=== PATIENT | male | born 1945 | race African-American/Black ===

== ENCOUNTER → 2017-03-24 | Outpatient (CLI) | payer OTHER, MEDICARE | END | disposition home or self-care (01) | LOC: RAD 11:28 | DX: M19.011 Primary osteoarthritis, right shoulder (principal); M75.02 Adhesive capsulitis of left shoulder ==

== ENCOUNTER 2017-04-24 08:52 | Inpatient (IN) | payer OTHER, MEDICARE ==
[~2017-04-24] VITALS: Ht 167.6 cm; Wt 64.6 kg
[2017-04-24] VITALS (7 sets, daily range): BP systolic 108–131; BP diastolic 58–75
--- NOTE | ~2017-04-24 | CON ---
[place], [place] REPORT OF CONSULTATION NAME: ANAHI CARRANZA [facility] #: [id number] UNIT #: [id number] ROOM: 532 DOCTOR: SILVIO MataRAAD BIRTHDATE: [birth year] DOS: 04/25/2017 HISTORY OF PRESENT ILLNESS: This is a 71-year-old male who was admitted to the Emergency Room Department for a fall. Charts indicate that he also may have passed out. He had been complaining of feeling lightheaded and it is unclear if he hit his head or not, but Wound Care has been consulted for evaluation of feet. PAST MEDICAL HISTORY: Significant for the following, frozen shoulder, hernia repair. Current medical problems; however, include cellulitis, elevated CPK, fall, generalized weakness, hyperbilirubinemia, hypercholesterolemia, hyperglycemia, hypocalcemia, hypokalemia, sinus bradycardia, spinal stenosis in the cervical region, syncope and collapse and urinary retention. FAMILY HISTORY: Significant for diabetes in the father, kidney disease in his mother. ALLERGIES: No known drug allergies. CURRENT MEDICATIONS: Zocor 20 mg p.o. at bedtime, oxybutynin 5 mg p.o. b.i.d., hydrochlorothiazide 25 p.o. daily, Lovenox 40 subcutaneous daily, aspirin 81 p.o. daily, Protonix 40 p.o. daily, vancomycin 1000 mg IV twice a day, Zosyn 3.375 g IV q. 6 hours, Restoril, Zofran, morphine, milk of mag, Dulcolax, Branscomb and Tylenol p.r.n. REVIEW OF SYSTEMS: He denies any chest pains or shortness of breath. He denies any nausea or vomiting. When I asked if he has any problems with his bowels, he denies any problems with that at the present time. He said he is taking oxybutynin for incomplete voiding. He denies any numbness or tingling in the upper extremities or lower extremities, but states he is weak. He stated he is really unable to move his arms or legs and unable to stand up. He has deformed toenails and states he has not really been taking care of himself and he seems to be aware of that. PHYSICAL EXAMINATION: VITAL SIGNS: Temperature is 97.9, pulse of 59, respirations 20, blood pressure is 111/51. GENERAL: This is an elderly male, lying in bed, in no acute distress. He is pleasant and cooperative. He is alert, awake and appropriate. HEENT: Oropharynx is clear. Extraocular movements are intact. NECK: Supple. I did not appreciate any JVD. LUNGS: Clear to auscultation. CARDIOVASCULAR: S1, S2, regular rate and rhythm. ABDOMEN: Soft. It does seem to be mildly distended. Positive bowel sounds and nontender. EXTREMITIES: He has edema of both of his legs at this time. One leg is crossed over on the other leg and is creating an indentation. It is pitting edema. He has no calf tenderness. He has very thickened and deformed toenails. Pedal swelling is noted. The toes are markedly edematous. There are thick patches of dry scales on the dorsal surface of all the toes. There is some maceration [place], [place] REPORT OF CONSULTATION NAME: ANAHI CARRANZA UNIT #: [id number] ROOM: [facility] DOCTOR: RAAD ANGUIANO M.D. BIRTHDATE: [birth year] noted in between the toes. I did not actually see any open ulcers at this time. NEUROLOGICAL: He is really unable to move voluntarily his arms or legs. He has reflex spasticity noted in the lower extremities when examining him. LABORATORY DATA: Shows sodium of 140, potassium of 3.5, BUN of 7, creatinine is 0.74. Hemoglobin A1c is 5.8. Troponin is negative x 2. Albumin is 2.9. INR is 1.1. White count is 7.1, hemoglobin is 12.8 and platelets are 171. Urine culture is growing greater than 100,000 Gram-negative bacilli. ASSESSMENT AND PLAN: Multiple medical problems. As far as the feet go, I would recommend Podiatry consultation. At this point, I would try to wash his feet with chlorhexidine and use antifungal powder for the areas in between the toes, consider antifungal oral medication as well and consider using Lac-Hydrin for the hyperkeratotic areas located on the dorsum of the feet. He did have arterial Dopplers done which were no significant peripheral arterial disease and venous Dopplers were negative for DVT in the lower extremities. Multiple other medical problems are being managed by his medical team. RAAD ANGUIANO MD CM:CONSTR:REPORT OF CONSULTATION [id number] 04/26/17 1419 interface
[2017-04-24 09:27] LABS: BASO % 0.5 % (0.0-1.0); EOS # 0.1 10*3/uL (0.0-0.4); HEMATOCRIT 37.9 % (42.0-52.0); HEMOGLOBIN 13.1 g/dl (14.0-18.0); LYMPH # 0.8 10*3/uL (1.3-4.4); LYMPH % 13.1 % (27.0-41.0); MEAN CORPUSCULAR HGB 32.5 pg (27.0-31.0); MEAN CORPUSCULAR HGB CONC 34.6 g/dl (33.0-37.0); MEAN PLATELET VOLUME 9.6 fl (9.6-12.3); MONO # 0.3 10*3/uL (0.1-1.0); MONO % 4.9 % (3.0-9.0); NEUT # 4.9 10*3/uL (2.3-7.9); NEUT % 80.3 % (47.0-73.0); PLATELET COUNT AUTOMATED 174 10*3/uL (130-400); RED BLOOD COUNT 4.03 10*6/uL (4.50-5.90); RED CELL DISTRI WIDTH 13.2 % (0-14.5); WHITE BLOOD COUNT 6.1 10*3/uL (4.8-10.8)
[2017-04-24 09:36] LABS: INTERNATIONAL NORM RATIO 1.1 (2.0-3.5); PROTHROMBIN TIME 12.1 SECONDS (9.0-12.4)
[2017-04-24 09:49] LABS: ALBUMIN 3.5 gm/dl (3.1-4.5); ALKALINE PHOSPHATASE 75 U/L (45-117); BILIRUBIN, TOTAL 1.3 mg/dl (0.2-1.0); BUN 9 mg/dl (7-24); CARBON DIOXIDE 28 mmol/L (21-32); CHLORIDE 104 mmol/L (98-107); CPK 332 U/L (39-308); EST GLOM FILT AFRICAN AMERICAN > 60 ml/min; GLUCOSE 118 mg/dL (65-99); MAGNESIUM 2.1 mg/dL (1.5-2.1); POTASSIUM 3.3 mmol/L (3.5-5.1); SGOT/AST 22 IU/L (3-35); SGPT/ALT 21 U/L (12-78); SODIUM 138 mmol/L (136-145); TOTAL PROTEIN 6.2 gm/dL (6.4-8.2)
[2017-04-24 09:51] LABS: TROPONIN I < 0.015 ng/ml (<0.045)
[2017-04-24 10:10] LABS: BILIRUBIN NEGATIVE (NEGATIVE); BLOOD NEGATIVE (NEGATIVE); CLARITY CLOUDY (CLEAR); COLOR YELLOW (YELLOW); GLUCOSE NEGATIVE (NEGATIVE); KETONE 1+ (NEGATIVE); LEUKO ESTERASE TRACE (NEGATIVE); NITRITE POSITIVE (NEGATIVE); PROTEIN NEGATIVE (NEGATIVE)
[2017-04-24 10:17] LABS: BACTERIA 3+; RBC 0-2 rbc/hpf (0-2)
[2017-04-24 10:18] LABS: URINE REFLEX COMMENT YES (NO)
[2017-04-24] MEDS ORDERED: OXYBUTYNIN5 MG PO (13:39)
[2017-04-24] MEDS ORDERED: SIMVASTATIN20 MG PO (13:39)
[2017-04-24] MEDS ORDERED: HYDR25T PO (13:40)
[2017-04-24] MEDS ORDERED: ASPIR LOW81 MG PO (13:40)
[2017-04-25 06:09] LABS: BASO % 0.4 % (0.0-1.0); EOS # 0.1 10*3/uL (0.0-0.4); HEMATOCRIT 37.4 % (42.0-52.0); HEMOGLOBIN 12.8 g/dl (14.0-18.0); LYMPH % 13.6 % (27.0-41.0); MEAN CELL VOLUME 94.2 fl (80.0-94.0); MEAN CORPUSCULAR HGB 32.2 pg (27.0-31.0); MEAN CORPUSCULAR HGB CONC 34.2 g/dl (33.0-37.0); MONO # 0.4 10*3/uL (0.1-1.0); MONO % 5.9 % (3.0-9.0); NEUT # 5.5 10*3/uL (2.3-7.9); NEUT % 77.7 % (47.0-73.0); PLATELET COUNT AUTOMATED 171 10*3/uL (130-400); RED BLOOD COUNT 3.97 10*6/uL (4.50-5.90); RED CELL DISTRI WIDTH 13.2 % (0-14.5); WHITE BLOOD COUNT 7.1 10*3/uL (4.8-10.8)
[2017-04-25 06:27] LABS: HEMOGLOBIN A1c 5.8 % (4.8-5.6)
[2017-04-25 06:36] LABS: ALBUMIN 2.9 gm/dl (3.1-4.5); BILIRUBIN, TOTAL 1.5 mg/dl (0.2-1.0); BUN 7 mg/dl (7-24); CARBON DIOXIDE 29 mmol/L (21-32); CHLORIDE 106 mmol/L (98-107); CHOLESTEROL 116 mg/dL (<200); EST GLOM FILT AFRICAN AMERICAN > 60 ml/min; GLUCOSE 85 mg/dL (65-99); MAGNESIUM 2.1 mg/dL (1.5-2.1); PHOSPHOROUS 3.7 mg/dL (2.5-4.9); POTASSIUM 3.5 mmol/L (3.5-5.1); SGOT/AST 16 IU/L (3-35); SGPT/ALT 16 U/L (12-78); SODIUM 140 mmol/L (136-145); TOTAL PROTEIN 5.4 gm/dL (6.4-8.2); TRIGLYCERIDES 63 mg/dl (<150); VLDL CHOLESTEROL 13 mg/dL (6-40)
[2017-04-25 06:38] LABS: INTERNATIONAL NORM RATIO 1.1 (2.0-3.5); PROTHROMBIN TIME 11.9 SECONDS (9.0-12.4)
[2017-04-25 06:43] LABS: ALKALINE PHOSPHATASE 69 U/L (45-117); HDL CHOLESTEROL 30 mg/dl (40-60); LDL CHOLESTEROL 73 mg/dL (9-159)
[2017-04-25 08:26] VITALS: BP 110/50
[2017-04-25 12:45] VITALS: BP 111/51
[2017-04-25 16:00] VITALS: BP 119/58
[2017-04-25 16:51] LABS: FOLIC ACID 16.48 ng/mL (>5.38); VITAMIN D, 25-HYDROXY 32.4 ng/mL (30-100)
== END 2017-04-25 19:28 | disposition short-term general hospital (02) | DRG 603 ==
LOC: ED 08:52 → EDHOLD 10:48 → 5E 10:48
PROVIDERS: Emergency Medicine; Internal Medicine
DX: L03.116 Cellulitis of left lower limb (principal); E44.0 Moderate protein-calorie malnutrition; N30.00 Acute cystitis without hematuria; R00.1 Bradycardia, unspecified; E83.51 Hypocalcemia; M48.02 Spinal stenosis, cervical region; R55 Syncope and collapse; R94.4 Abnormal results of kidney function studies; E80.6 Other disorders of bilirubin metabolism; R33.9 Retention of urine, unspecified; R73.03 Prediabetes; E87.6 Hypokalemia; E78.00 Pure hypercholesterolemia, unspecified; W18.30XA Fall on same level, unspecified, initial encounter; Y93.89 Activity, other specified; Y92.098 Other place in other non-institutional residence as the place of occurrence of the external cause; Y99.8 Other external cause status; Z79.82 Long term (current) use of aspirin; Z79.899 Other long term (current) drug therapy; Z83.3 Family history of diabetes mellitus; Z84.1 Family history of disorders of kidney and ureter; Z91.81 History of falling

== ENCOUNTER 2017-10-04 22:52 | Inpatient (IN) | payer OTHER, MEDICARE ==
[~2017-10-04] VITALS: Ht 167.6 cm; Wt 64.0 kg
[~2017-10-04 22:52] MED LIST: ASPIR LOW81 MG PO; HYDR25T PO; OXYBUTYNIN5 MG PO; SIMVASTATIN20 MG PO
[2017-10-04 22:57] VITALS: BP 119/70
[2017-10-05] VITALS (7 sets, daily range): BP systolic 87–127; BP diastolic 45–74
[2017-10-05 00:22] LABS: BASO % 0.3 % (0.0-1.0); EOS # 0.1 10*3/uL (0.0-0.4); EOS % 0.8 % (1.0-4.0); HEMATOCRIT 39.3 % (42.0-52.0); HEMOGLOBIN 13.1 g/dl (14.0-18.0); LYMPH # 0.9 10*3/uL (1.3-4.4); LYMPH % 11.6 % (27.0-41.0); MEAN CELL VOLUME 91.8 fl (80.0-94.0); MEAN CORPUSCULAR HGB 30.6 pg (27.0-31.0); MEAN CORPUSCULAR HGB CONC 33.3 g/dl (33.0-37.0); MEAN PLATELET VOLUME 10.1 fl (9.6-12.3); MONO # 0.3 10*3/uL (0.1-1.0); MONO % 4.3 % (3.0-9.0); NEUT # 6.2 10*3/uL (2.3-7.9); NEUT % 82.7 % (47.0-73.0); PLATELET COUNT AUTOMATED 158 10*3/uL (130-400); RED BLOOD COUNT 4.28 10*6/uL (4.50-5.90); RED CELL DISTRI WIDTH 15.4 % (0-14.5); WHITE BLOOD COUNT 7.5 10*3/uL (4.8-10.8)
[2017-10-05 00:30] LABS: ACT PARTIAL THROMBO TIME 26.3 SECONDS (20.8-31.5); INTERNATIONAL NORM RATIO 1.1 (2.0-3.5)
[2017-10-05 00:47] LABS: ALBUMIN 3.7 gm/dl (3.1-4.5); ALKALINE PHOSPHATASE 102 U/L (45-117); BUN 10 mg/dl (7-24); CHLORIDE 101 mmol/L (98-107); CREATININE 0.78 mg/dL (0.70-1.30); POTASSIUM 3.8 mmol/L (3.5-5.1); SGOT/AST 20 IU/L (3-35); SGPT/ALT 23 U/L (12-78); SODIUM 141 mmol/L (136-145); TOTAL PROTEIN 6.7 gm/dL (6.4-8.2)
[2017-10-05 00:51] LABS: TROPONIN I < 0.015 ng/ml (<0.045)
[2017-10-05 00:55] LABS: BILIRUBIN NEGATIVE (NEGATIVE); BLOOD NEGATIVE (NEGATIVE); CLARITY SL CLOUDY (CLEAR); COLOR YELLOW (YELLOW); GLUCOSE NEGATIVE (NEGATIVE); KETONE NEGATIVE (NEGATIVE); LEUKO ESTERASE 2+ (NEGATIVE); NITRITE POSITIVE (NEGATIVE); SPECIFIC GRAVITY <= 1.005 (1.005-1.030); UROBILINOGEN 0.2 E.U./dl (0.2-1.0)
[2017-10-05 01:05] LABS: WBC 21-30 wbc/hpf (0-5)
[2017-10-05 01:06] LABS: BACTERIA 4+
[2017-10-05 01:09] LABS: URINE AMPHETAMINES < 1000 (1000ng/ml); URINE BARBITURATES < 200 (200ng/ml); URINE BENZODIAZEPINES < 200 (200ng/ml); URINE CANNABINOIDS (THC) < 50 (50ng/ml); URINE COCAINE < 300 (300ng/ml); URINE METHADONE < 300 (300ng/ml); URINE OPIATES < 300 (300ng/ml)
[2017-10-05 01:13] LABS: URINE PHENCYCLIDINE < 25 (25ng/ml)
[2017-10-05 06:20] LABS: BASO % 0.3 % (0.0-1.0); EOS % 0.7 % (1.0-4.0); HEMATOCRIT 38.4 % (42.0-52.0); HEMOGLOBIN 12.9 g/dl (14.0-18.0); LYMPH # 0.8 10*3/uL (1.3-4.4); LYMPH % 13.2 % (27.0-41.0); MEAN CELL VOLUME 92.3 fl (80.0-94.0); MEAN CORPUSCULAR HGB CONC 33.6 g/dl (33.0-37.0); MEAN PLATELET VOLUME 9.8 fl (9.6-12.3); MONO # 0.3 10*3/uL (0.1-1.0); MONO % 4.9 % (3.0-9.0); NEUT % 80.7 % (47.0-73.0); PLATELET COUNT AUTOMATED 159 10*3/uL (130-400); RED BLOOD COUNT 4.16 10*6/uL (4.50-5.90); RED CELL DISTRI WIDTH 15.3 % (0-14.5); WHITE BLOOD COUNT 6.1 10*3/uL (4.8-10.8)
[2017-10-05 06:22] LABS: INTERNATIONAL NORM RATIO 1.1 (2.0-3.5)
[2017-10-05 06:44] LABS: ALBUMIN 3.3 gm/dl (3.1-4.5); ALKALINE PHOSPHATASE 97 U/L (45-117); BUN 8 mg/dl (7-24); CHLORIDE 108 mmol/L (98-107); CHOLESTEROL 87 mg/dL (<200); CREATININE 0.76 mg/dL (0.70-1.30); HDL CHOLESTEROL 39 mg/dl (40-60); LDL CHOLESTEROL 41 mg/dL (9-159); PHOSPHOROUS 3.2 mg/dL (2.5-4.9); POTASSIUM 3.5 mmol/L (3.5-5.1); SGOT/AST 16 IU/L (3-35); SGPT/ALT 21 U/L (12-78); SODIUM 145 mmol/L (136-145); TOTAL PROTEIN 6.3 gm/dL (6.4-8.2); TRIGLYCERIDES 34 mg/dl (<150); VLDL CHOLESTEROL 7 mg/dL (6-40)
[2017-10-05 08:36] LABS: VITAMIN D, 25-HYDROXY 32.1 ng/mL (30-100)
[2017-10-05] MEDS ORDERED: FLOMAX0.4 MG PO (13:28)
[2017-10-05] MEDS ORDERED: VESICARE10 MG PO (13:42)
[2017-10-06] VITALS: BP 98/50
[2017-10-06 08:00] VITALS: BP 102/60
[2017-10-06 11:56] VITALS: BP 103/58
[2017-10-06] MEDS ORDERED: CIPRO500 MG PO (15:48)
[2017-10-06 16:00] VITALS: BP 101/59
== END 2017-10-06 18:29 | disposition home health service (06) | DRG 312 ==
LOC: ED 22:52 → EDHOLD 10-05 01:44 → 5E 10-05 01:44
PROVIDERS: Emergency Medicine Emergency Medical Services; Hospitalist
DX: R55 Syncope and collapse (principal); D64.9 Anemia, unspecified; N39.0 Urinary tract infection, site not specified; E44.1 Mild protein-calorie malnutrition; S00.03XA Contusion of scalp, initial encounter; E78.00 Pure hypercholesterolemia, unspecified; I10 Essential (primary) hypertension; Z53.29 Procedure and treatment not carried out because of patient's decision for other reasons; W18.39XA Other fall on same level, initial encounter; R73.03 Prediabetes; N40.0 Benign prostatic hyperplasia without lower urinary tract symptoms; R73.9 Hyperglycemia, unspecified; Z91.81 History of falling; Y93.89 Activity, other specified; Y92.098 Other place in other non-institutional residence as the place of occurrence of the external cause; Y99.8 Other external cause status; Z79.899 Other long term (current) drug therapy; Z87.440 Personal history of urinary (tract) infections; Z83.3 Family history of diabetes mellitus; Z84.1 Family history of disorders of kidney and ureter; Z79.82 Long term (current) use of aspirin; Z68.22 Body mass index [BMI] 22.0-22.9, adult

== ENCOUNTER → 2018-07-31 | Outpatient (CLI) | payer MEDICARE, OTHER ==
[~2018-07-31] MED LIST changes: +CIPRO500 MG PO; +FLOMAX0.4 MG PO; +VESICARE10 MG PO
== END ==
LOC: RAD 11:41
DX: M50.30 Other cervical disc degeneration, unspecified cervical region (principal); Z98.1 Arthrodesis status

== ENCOUNTER 2019-12-08 04:03 | Inpatient (IN) | payer MEDICARE, OTHER ==
[~2019-12-08] VITALS: Ht 167.6 cm; Wt 60.0 kg
[2019-12-08 04:14] VITALS: BP 108/59
[2019-12-08 04:44] LABS: BASO % 0.4 % (0.0-1.0); EOS # 0.1 10*3/uL (0.0-0.4); EOS % 0.7 % (1.0-4.0); HEMATOCRIT 36.8 % (42.0-52.0); HEMOGLOBIN 12.2 g/dl (14.0-18.0); LYMPH # 0.9 10*3/uL (1.3-4.4); LYMPH % 12.6 % (27.0-41.0); MEAN CELL VOLUME 98.1 fl (80.0-94.0); MEAN CORPUSCULAR HGB 32.5 pg (27.0-31.0); MEAN CORPUSCULAR HGB CONC 33.2 g/dl (33.0-37.0); MEAN PLATELET VOLUME 9.7 fl (9.6-12.3); MONO # 0.3 10*3/uL (0.1-1.0); MONO % 4.9 % (3.0-9.0); NEUT # 5.6 10*3/uL (2.3-7.9); NEUT % 81.1 % (47.0-73.0); PLATELET COUNT AUTOMATED 157 10*3/uL (130-400); RED BLOOD COUNT 3.75 10*6/uL (4.50-5.90); RED CELL DISTRI WIDTH 13.3 % (0-14.5); WHITE BLOOD COUNT 6.9 10*3/uL (4.8-10.8)
[2019-12-08 04:59] LABS: ACT PARTIAL THROMBO TIME 26.3 SECONDS (20.0-32.1); INTERNATIONAL NORM RATIO 1.1 (2.0-3.5)
[2019-12-08 05:01] LABS: ALBUMIN 3.3 gm/dl (3.1-4.5); ALKALINE PHOSPHATASE 80 U/L (45-117); BUN 7 mg/dl (7-24); CHLORIDE 107 mmol/L (98-107); CREATININE 0.63 mg/dL (0.70-1.30); LIPASE 56 U/L (73-393); POTASSIUM 3.3 mmol/L (3.5-5.1); SGOT/AST 21 IU/L (3-35); SGPT/ALT 25 U/L (12-78); SODIUM 138 mmol/L (136-145); TOTAL PROTEIN 6.1 gm/dL (6.4-8.2)
[2019-12-08 05:02] LABS: TROPONIN I < 0.015 ng/ml (<0.045)
[2019-12-08 05:20] LABS: BILIRUBIN NEGATIVE (NEGATIVE); BLOOD TRACE-INTACT (NEGATIVE); CLARITY SL CLOUDY (CLEAR); COLOR YELLOW (YELLOW); GLUCOSE NEGATIVE (NEGATIVE); KETONE NEGATIVE (NEGATIVE); NITRITE POSITIVE (NEGATIVE); PH 8.5 (5.0-9.0); SPECIFIC GRAVITY 1.005 (1.005-1.030); UROBILINOGEN 0.2 E.U./dl (0.2-1.0)
[2019-12-08 05:21] LABS: LEUKO ESTERASE TRACE (NEGATIVE)
[2019-12-08 05:24] LABS: BACTERIA 4+
[2019-12-08 08:00] VITALS: BP 125/63
[2019-12-08 08:30] VITALS: BP 124/63
[2019-12-08 09:40] VITALS: BP 138/60
[2019-12-08 16:00] VITALS: BP 126/62
[2019-12-08 20:00] VITALS: BP 113/58
[2019-12-09] VITALS: BP 113/59
[2019-12-09 06:59] LABS: BASO % 0.5 % (0.0-1.0); EOS # 0.1 10*3/uL (0.0-0.4); HEMATOCRIT 39.5 % (42.0-52.0); HEMOGLOBIN 12.9 g/dl (14.0-18.0); LYMPH # 0.9 10*3/uL (1.3-4.4); LYMPH % 15.3 % (27.0-41.0); MEAN CELL VOLUME 99.5 fl (80.0-94.0); MEAN CORPUSCULAR HGB 32.5 pg (27.0-31.0); MEAN CORPUSCULAR HGB CONC 32.7 g/dl (33.0-37.0); MEAN PLATELET VOLUME 10.7 fl (9.6-12.3); MONO # 0.3 10*3/uL (0.1-1.0); MONO % 5.1 % (3.0-9.0); NEUT # 4.5 10*3/uL (2.3-7.9); NEUT % 76.8 % (47.0-73.0); PLATELET COUNT AUTOMATED 168 10*3/uL (130-400); RED BLOOD COUNT 3.97 10*6/uL (4.50-5.90); RED CELL DISTRI WIDTH 13.6 % (0-14.5); WHITE BLOOD COUNT 5.9 10*3/uL (4.8-10.8)
[2019-12-09 07:10] LABS: BUN 5 mg/dl (7-24); CHLORIDE 111 mmol/L (98-107); CHOLESTEROL 99 mg/dL (<200); CREATININE 0.57 mg/dL (0.70-1.30); HDL CHOLESTEROL 27 mg/dl (40-60); LDL CHOLESTEROL 58 mg/dL (9-159); PHOSPHOROUS 3.5 mg/dL (2.5-4.9); POTASSIUM 3.7 mmol/L (3.5-5.1); SODIUM 143 mmol/L (136-145); TRIGLYCERIDES 71 mg/dl (<150); VLDL CHOLESTEROL 14 mg/dL (6-40)
[2019-12-09 08:00] VITALS: BP 114/58
[2019-12-09] MEDS ORDERED: TYLENOL325 M2 PO (10:30)
[2019-12-09] MEDS ORDERED: AMMONIUM LACTA227 GM T (10:33)
[2019-12-09] MEDS ORDERED: BACLOFEN5 MG PO (10:35)
[2019-12-09] MEDS ORDERED: DULCOLAX STOOL100 M1 PO (10:36)
[2019-12-09] MEDS ORDERED: HYDR25T PO (10:38)
[2019-12-09] MEDS ORDERED: MELATONIN3 M3 PO (10:43)
[2019-12-09] MEDS ORDERED: MULTIVITAMINS1 EAC5 PO (10:45)
[2019-12-09] MEDS ORDERED: BETADINE T (10:49)
[2019-12-09] MEDS ORDERED: UREA85 G1 T (10:53)
[2019-12-09] MEDS ORDERED: METAMUCIL FIBE3.4 GM PO (10:53)
[2019-12-09] MEDS ORDERED: LIDOCAINE PAIN1 EACH T (11:00)
[2019-12-09 12:00] VITALS: BP 109/73
[2019-12-09] MEDS ORDERED: MIRALAX POWDER17 G1 PO (15:08)
[2019-12-10 13:48] LABS: VITAMIN D, 25-HYDROXY 32.6 ng/mL (30-100)
== END 2019-12-09 16:45 | disposition home health service (06) | DRG 392 ==
LOC: ED 04:03 → EDHOLD 07:36 → 4E 07:36
PROVIDERS: Emergency Medicine Emergency Medical Services; Family Medicine; ADMIT Family Medicine
DX: K59.00 Constipation, unspecified (principal); T83.518A Infection and inflammatory reaction due to other urinary catheter, initial encounter; N39.0 Urinary tract infection, site not specified; E44.1 Mild protein-calorie malnutrition; I50.32 Chronic diastolic (congestive) heart failure; R33.9 Retention of urine, unspecified; R73.9 Hyperglycemia, unspecified; E87.6 Hypokalemia; D53.9 Nutritional anemia, unspecified; R73.03 Prediabetes; R93.2 Abnormal findings on diagnostic imaging of liver and biliary tract; L97.509 Non-pressure chronic ulcer of other part of unspecified foot with unspecified severity; G62.9 Polyneuropathy, unspecified; Z87.39 Personal history of other diseases of the musculoskeletal system and connective tissue; Z87.19 Personal history of other diseases of the digestive system; Z79.82 Long term (current) use of aspirin; Z79.899 Other long term (current) drug therapy; Z83.3 Family history of diabetes mellitus; Z84.1 Family history of disorders of kidney and ureter; Z68.21 Body mass index [BMI] 21.0-21.9, adult

== ENCOUNTER 2019-12-12 05:36 | Inpatient (IN) | payer MEDICARE, OTHER ==
[~2019-12-12] VITALS: Ht 167.6 cm; Wt 59.6 kg
[~2019-12-12 05:36] MED LIST changes: +AMMONIUM LACTA227 GM T; +BACLOFEN5 MG PO; +BETADINE T; +DULCOLAX STOOL100 M1 PO; +LIDOCAINE PAIN1 EACH T; +MELATONIN3 M3 PO; +METAMUCIL FIBE3.4 GM PO; +MIRALAX POWDER17 G1 PO; +MULTIVITAMINS1 EAC5 PO; +TYLENOL325 M2 PO; +UREA85 G1 T
[2019-12-12 05:57] VITALS: BP 86/51
[2019-12-12 06:15] LABS: BASO % 0.4 % (0.0-1.0); EOS # 0.2 10*3/uL (0.0-0.4); EOS % 2.2 % (1.0-4.0); HEMATOCRIT 32.4 % (42.0-52.0); HEMOGLOBIN 10.8 g/dl (14.0-18.0); LYMPH # 0.9 10*3/uL (1.3-4.4); MEAN CELL VOLUME 97.6 fl (80.0-94.0); MEAN CORPUSCULAR HGB 32.5 pg (27.0-31.0); MEAN CORPUSCULAR HGB CONC 33.3 g/dl (33.0-37.0); MEAN PLATELET VOLUME 9.6 fl (9.6-12.3); MONO # 0.7 10*3/uL (0.1-1.0); MONO % 8.3 % (3.0-9.0); NEUT # 6.5 10*3/uL (2.3-7.9); NEUT % 77.7 % (47.0-73.0); PLATELET COUNT AUTOMATED 153 10*3/uL (130-400); RED BLOOD COUNT 3.32 10*6/uL (4.50-5.90); RED CELL DISTRI WIDTH 13.4 % (0-14.5); WHITE BLOOD COUNT 8.3 10*3/uL (4.8-10.8)
[2019-12-12 06:26] VITALS: BP 80/53
[2019-12-12 06:28] LABS: ALBUMIN 3.3 gm/dl (3.1-4.5); ALKALINE PHOSPHATASE 77 U/L (45-117); BUN 22 mg/dl (7-24); CHLORIDE 105 mmol/L (98-107); CREATININE 0.68 mg/dL (0.70-1.30); LIPASE 60 U/L (73-393); POTASSIUM 3.8 mmol/L (3.5-5.1); SGOT/AST 18 IU/L (3-35); SGPT/ALT 24 U/L (12-78); SODIUM 139 mmol/L (136-145)
[2019-12-12 08:00] VITALS: BP 103/58
[2019-12-12] MEDS ORDERED: EMERGEN-C 500500 MG PO (08:34)
[2019-12-12] MEDS ORDERED: OMEGA 3 1,0001 EACH PO (08:35)
[2019-12-12 12:00] VITALS: BP 120/64
[2019-12-12 16:00] VITALS: BP 107/60
[2019-12-12 20:00] VITALS: BP 114/56
[2019-12-13] VITALS: BP 121/63
[2019-12-13 06:02] LABS: BASO % 0.8 % (0.0-1.0); EOS # 0.3 10*3/uL (0.0-0.4); EOS % 5.6 % (1.0-4.0); HEMATOCRIT 31.9 % (42.0-52.0); HEMOGLOBIN 10.4 g/dl (14.0-18.0); LYMPH % 21.3 % (27.0-41.0); MEAN CELL VOLUME 99.7 fl (80.0-94.0); MEAN CORPUSCULAR HGB 32.5 pg (27.0-31.0); MEAN CORPUSCULAR HGB CONC 32.6 g/dl (33.0-37.0); MEAN PLATELET VOLUME 10.1 fl (9.6-12.3); MONO # 0.4 10*3/uL (0.1-1.0); MONO % 7.3 % (3.0-9.0); NEUT # 3.1 10*3/uL (2.3-7.9); NEUT % 64.6 % (47.0-73.0); PLATELET COUNT AUTOMATED 164 10*3/uL (130-400); RED CELL DISTRI WIDTH 13.3 % (0-14.5); WHITE BLOOD COUNT 4.8 10*3/uL (4.8-10.8)
[2019-12-13 06:08] LABS: BUN 15 mg/dl (7-24); CHLORIDE 110 mmol/L (98-107); CHOLESTEROL 77 mg/dL (<200); CREATININE 0.64 mg/dL (0.70-1.30); FREE T4 0.89 ng/dl (0.76-1.46); HDL CHOLESTEROL 29 mg/dl (40-60); LDL CHOLESTEROL 39 mg/dL (9-159); PHOSPHOROUS 3.3 mg/dL (2.5-4.9); POTASSIUM 3.3 mmol/L (3.5-5.1); SODIUM 143 mmol/L (136-145); TRIGLYCERIDES 47 mg/dl (<150); VLDL CHOLESTEROL 9 mg/dL (6-40)
[2019-12-13 06:18] LABS: ACT PARTIAL THROMBO TIME 32.2 SECONDS (20.0-32.1); INTERNATIONAL NORM RATIO 1.1 (2.0-3.5)
[2019-12-13 07:07] LABS: VITAMIN D, 25-HYDROXY 30.1 ng/mL (30-100)
[2019-12-13 08:09] VITALS: BP 113/67
[2019-12-13 09:46] LABS: BACTERIA 1+; BILIRUBIN NEGATIVE (NEGATIVE); BLOOD NEGATIVE (NEGATIVE); CLARITY CLEAR (CLEAR); COLOR YELLOW (YELLOW); GLUCOSE NEGATIVE (NEGATIVE); KETONE NEGATIVE (NEGATIVE); LEUKO ESTERASE TRACE (NEGATIVE); NITRITE NEGATIVE (NEGATIVE); UROBILINOGEN 0.2 E.U./dl (0.2-1.0)
[2019-12-13 11:32] VITALS: BP 112/57
[2019-12-13 16:00] VITALS: BP 100/58
[2019-12-13 20:00] VITALS: BP 100/78
[2019-12-14] VITALS: BP 131/76; BP 141/62
[2019-12-14 05:57] LABS: BUN 8 mg/dl (7-24); CHLORIDE 113 mmol/L (98-107); CREATININE 0.59 mg/dL (0.70-1.30); POTASSIUM 3.8 mmol/L (3.5-5.1); SODIUM 145 mmol/L (136-145)
[2019-12-14 06:12] LABS: BASO % 0.8 % (0.0-1.0); EOS # 0.3 10*3/uL (0.0-0.4); EOS % 6.2 % (1.0-4.0); HEMOGLOBIN 10.6 g/dl (14.0-18.0); LYMPH # 1.1 10*3/uL (1.3-4.4); LYMPH % 21.1 % (27.0-41.0); MEAN CELL VOLUME 97.9 fl (80.0-94.0); MEAN CORPUSCULAR HGB 31.5 pg (27.0-31.0); MEAN CORPUSCULAR HGB CONC 32.1 g/dl (33.0-37.0); MEAN PLATELET VOLUME 10.2 fl (9.6-12.3); MONO # 0.3 10*3/uL (0.1-1.0); NEUT # 3.5 10*3/uL (2.3-7.9); NEUT % 65.7 % (47.0-73.0); PLATELET COUNT AUTOMATED 176 10*3/uL (130-400); RED BLOOD COUNT 3.37 10*6/uL (4.50-5.90); RED CELL DISTRI WIDTH 13.3 % (0-14.5); WHITE BLOOD COUNT 5.3 10*3/uL (4.8-10.8)
[2019-12-14 08:00] VITALS: BP 109/58
[2019-12-14] MEDS ORDERED: MIRALAX POWDER17 G1 PO (08:08)
[2019-12-14 12:00] VITALS: BP 118/65
== END 2019-12-14 14:01 | disposition home or self-care (01) | DRG 394 ==
LOC: ED 05:36 → EDHOLD 07:04 → 4NE 07:04 → EDHOLD 07:17 → 4NE 07:34 → 4E 12-13 16:30
PROVIDERS: Emergency Medicine; Internal Medicine; ADMIT Internal Medicine
DX: K63.89 Other specified diseases of intestine (principal); N39.0 Urinary tract infection, site not specified; E44.1 Mild protein-calorie malnutrition; I50.32 Chronic diastolic (congestive) heart failure; K59.00 Constipation, unspecified; K76.89 Other specified diseases of liver; L97.529 Non-pressure chronic ulcer of other part of left foot with unspecified severity; I95.9 Hypotension, unspecified; D53.9 Nutritional anemia, unspecified; D35.01 Benign neoplasm of right adrenal gland; G89.29 Other chronic pain; G47.00 Insomnia, unspecified; I11.0 Hypertensive heart disease with heart failure; E78.5 Hyperlipidemia, unspecified; N32.81 Overactive bladder; N40.0 Benign prostatic hyperplasia without lower urinary tract symptoms; M48.02 Spinal stenosis, cervical region; E87.6 Hypokalemia; E87.8 Other disorders of electrolyte and fluid balance, not elsewhere classified; E83.41 Hypermagnesemia; S90.812A Abrasion, left foot, initial encounter; X58.XXXA Exposure to other specified factors, initial encounter; Y93.89 Activity, other specified; Y92.89 Other specified places as the place of occurrence of the external cause; Y99.8 Other external cause status; Z83.3 Family history of diabetes mellitus; Z84.1 Family history of disorders of kidney and ureter; Z79.899 Other long term (current) drug therapy; Z79.82 Long term (current) use of aspirin; Z68.21 Body mass index [BMI] 21.0-21.9, adult

== ENCOUNTER 2020-08-22 21:07 | Observation (INO) | payer MEDICARE, OTHER ==
[~2020-08-22] VITALS: Ht 167.6 cm; Wt 67.8 kg
[~2020-08-22 21:07] MED LIST changes: +EMERGEN-C 500500 MG PO; +OMEGA 3 1,0001 EACH PO
[2020-08-22 21:16] VITALS: BP 90/57
[2020-08-22 21:36] VITALS: BP 88/49
--- NOTE | 2020-08-22 21:47 | NUR ---
PTS , PAMELA [phone] CALLED
[2020-08-22 21:53] LABS: BASO % 0.3 % (0.0-1.0); EOS % 0.5 % (1.0-4.0); HEMATOCRIT 39.2 % (42.0-52.0); LYMPH # 0.8 10*3/uL (1.3-4.4); LYMPH % 10.1 % (27.0-41.0); MEAN CELL VOLUME 101.6 fl (80.0-94.0); MEAN CORPUSCULAR HGB 31.9 pg (27.0-31.0); MEAN CORPUSCULAR HGB CONC 31.4 g/dl (33.0-37.0); MEAN PLATELET VOLUME 10.7 fl (9.6-12.3); MONO # 0.4 10*3/uL (0.1-1.0); MONO % 4.5 % (3.0-9.0); NEUT # 6.5 10*3/uL (2.3-7.9); NEUT % 84.2 % (47.0-73.0); PLATELET COUNT AUTOMATED 153 10*3/uL (130-400); RED BLOOD COUNT 3.86 10*6/uL (4.50-5.90); RED CELL DISTRI WIDTH 13.2 % (0-14.5); WHITE BLOOD COUNT 7.7 10*3/uL (4.8-10.8)
[2020-08-22 21:54] VITALS: BP 100/51
[2020-08-22 22:13] LABS: ALBUMIN 3.4 gm/dl (3.1-4.5); ALKALINE PHOSPHATASE 85 U/L (45-117); BUN 16 mg/dl (7-24); CHLORIDE 109 mmol/L (98-107); CREATININE 0.86 mg/dL (0.70-1.30); POTASSIUM 3.8 mmol/L (3.5-5.1); SGOT/AST 22 IU/L (3-35); SGPT/ALT 26 U/L (12-78); SODIUM 143 mmol/L (136-145); TOTAL PROTEIN 6.3 gm/dL (6.4-8.2); TROPONIN I 0.043 ng/ml (<0.045)
[2020-08-22 22:29] VITALS: BP 86/50
--- NOTE | 2020-08-22 22:33 | NUR ---
PATIENT RESTING IN BED WITH EYES CLOSED. RR EASY AND NON-LABORED. CALL LIGHT WITHIN REACH. APPEARS TO BE IN NO DISTRESS. WILL CONTINUE TO MONITOR.
[2020-08-22 23:16] VITALS: BP 92/57
--- NOTE | 2020-08-22 23:45 | NUR ---
PATIENT RESTING IN BED WITH EYES CLOSED. APPEARS TO BE IN NO DISTRESS AT THIS TIME. RR EASY AND NON-LABORED. CALL LIGHT WITHIN REACH. WILL CONTINUE TO MONITOR.
[2020-08-22 23:58] VITALS: BP 87/63
[2020-08-23] VITALS (10 sets, daily range): BP systolic 94–135; BP diastolic 49–72
--- NOTE | 2020-08-23 00:11 | NUR ---
TALKED TO PATIENTS . TOLD PATIENT WOULD BE ADMITTED. WILL CONTINUE TO MONITOR.
--- NOTE | 2020-08-23 00:14 | NUR ---
PATIENTS WIFES PHONE NUMBER- [phone]
--- NOTE | 2020-08-23 02:24 | NUR ---
UNABLE TO VERIFY MEDICATIONS D/T PATIENT NOT KNOWING WHAT HE TAKES.
--- NOTE | 2020-08-23 02:54 | NUR ---
PITTING EDEMA NOTED TO BOTH LOWER EXTREMITIES. SCALING NOTED TO L HEEL FOLD. CALLUS NOTED TO R ARCH. SEAPAGE NOTED TO BILATERAL LOWER EXTREMITIES, PHOTOS TAKEN.
--- NOTE | 2020-08-23 02:57 | NUR ---
BILATERAL LOWER EXTRMITIY TAMMY HOSE WAS REMOVED, ELEVATED BILATERAL LOWER EXTREMITIES WITH PILLOWS.
[2020-08-23 03:09] LABS: BILIRUBIN Negative (Negative); BLOOD Negative (Negative); CLARITY Cloudy (Clear); COLOR Yellow (Yellow); GLUCOSE Negative (Negative); KETONE Negative (Negative); LEUKO ESTERASE 1+ (Negative); NITRITE Positive (Negative); SPECIFIC GRAVITY 1.015 (1.001-1.030)
--- NOTE | 2020-08-23 03:12 | NUR ---
PATIENT RESTING IN BED WITH NO COMPLAINTS AT THIS TIME. RR EASY AND NON-LABORED. APPEARS TO BE IN NO DISTRESS. WILL CONTINUE TO MONITOR. CALL LIGHT WITHIN REACH.
[2020-08-23 03:32] LABS: BACTERIA 3+; WBC 16-20 wbc/hpf (0-5)
[2020-08-23 03:34] LABS: BASO % 0.4 % (0.0-1.0); EOS % 0.4 % (1.0-4.0); HEMATOCRIT 37.4 % (42.0-52.0); LYMPH % 14.3 % (27.0-41.0); MEAN CELL VOLUME 99.2 fl (80.0-94.0); MEAN CORPUSCULAR HGB 31.3 pg (27.0-31.0); MEAN CORPUSCULAR HGB CONC 31.6 g/dl (33.0-37.0); MEAN PLATELET VOLUME 10.5 fl (9.6-12.3); MONO # 0.3 10*3/uL (0.1-1.0); MONO % 4.8 % (3.0-9.0); NEUT # 5.3 10*3/uL (2.3-7.9); PLATELET COUNT AUTOMATED 140 10*3/uL (130-400); RED BLOOD COUNT 3.77 10*6/uL (4.50-5.90); RED CELL DISTRI WIDTH 13.2 % (0-14.5); WHITE BLOOD COUNT 6.7 10*3/uL (4.8-10.8)
[2020-08-23 03:45] LABS: BUN 14 mg/dl (7-24); CHLORIDE 113 mmol/L (98-107); CREATININE 0.67 mg/dL (0.70-1.30); POTASSIUM 3.7 mmol/L (3.5-5.1); SODIUM 144 mmol/L (136-145)
--- NOTE | 2020-08-23 04:20 | NUR ---
SPOKE WITH RESIDENT ARLENE TO OBTAIN APPT FOR HEPARIN ORDERED FROM THAT RESIDENT. APPT NEEDS TO BE ORDERED BY THIS RN PER RESIDENT BEFORE HANGING HEPARIN.
--- NOTE | 2020-08-23 05:00 | NUR ---
OBTAINED APPT 27.1. WILL ADMINISTER HEPARIN PER RESIDENTS ORDERS.
--- NOTE | 2020-08-23 06:23 | NUR ---
PATIENT RESTING IN BED WITH EYES CLOSED. RR EASY AND NON-LABORED. CALL LIGHT WITHIN REACH. WILL CONTINUE TO MONITOR.
--- NOTE | 2020-08-23 06:53 | NUR ---
CONSULTED DR. HERNANDEZ. DR. HERNANDEZ STATES TO KEEP PATIENT ON HEPARIN DRIP AT THIS TIME AND HE WILL BE IN SOON TO SEE PATIENT.
--- NOTE | 2020-08-23 08:20 | NUR ---
CCA 74, admitted to 5E, under the services of RD Meza DO with a diagnosis of NEW ONSET A-FIB, HYPOTENSION. Chief complaint is HEART PALPITATIONS. Patient arrived via ambulance from ER. Monitor applied. Initial assessment completed. Vital signs taken and recorded. RD MEZA DO notified of admission to the unit. Orders received. See assessment for past medical history, medications and allergies. Patient and/or family oriented to unit. [facility]. visitation policy reviewed. Clothing/patient valuable form completed. ADOLFO BUTT.
--- NOTE | 2020-08-23 08:30 | NUR ---
IN TO SEE PATIENT.
--- NOTE | 2020-08-23 09:00 | NUR ---
UNABLE TO VERIFY HOME MEDS. PATIENT DOES NOT KNOW HOME MEDICATIONS. CALLED AT THIS TIME AND SHE STATES SHE DOESN'T KNOW. SHE SAYS [facility] WOULD [facility] A LIST. WILL ATTEMPT TO GET [facility] OF [facility].
--- NOTE | 2020-08-23 12:06 | NUR ---
LAB CALLED REGARDING CRITCAL APTT. HEPARIN GTT ALREADY DISCONTINUED PER PHYSICIAN.
--- NOTE | 2020-08-23 12:27 | NUR ---
HEPARIN GTT DISCONTINUED AT THIS TIME PER ORDER.
--- NOTE | 2020-08-23 19:33 | NUR ---
NOTIFIED REGARDING PATIENT'S REQUEST FOR BILATERAL LIDODERM PATCHES TO HIS SHOULDERS. PATIENT STATES IT IS A HOME MEDICATION. NEW ORDERS TO BE ENTERED PER PHYSICIAN.
--- NOTE | 2020-08-23 20:00 | NUR ---
PATIENT RESTING IN BED WITH NO NEEDS MADE. LIDOCAINE PATCH CUT IN HALF PER REQUEST AND PLACED ON BILATERAL SHOULDERS. STATES HE DOES THIS AT HOME. BED IN LOWEST POSITION, CALL LIGHT IN REACH
[2020-08-24] VITALS: BP 98/57
[2020-08-24 06:46] LABS: BASO % 0.6 % (0.0-1.0); EOS # 0.1 10*3/uL (0.0-0.4); EOS % 1.6 % (1.0-4.0); LYMPH # 1.2 10*3/uL (1.3-4.4); LYMPH % 18.6 % (27.0-41.0); MEAN CELL VOLUME 99.3 fl (80.0-94.0); MEAN CORPUSCULAR HGB 31.3 pg (27.0-31.0); MEAN CORPUSCULAR HGB CONC 31.5 g/dl (33.0-37.0); MEAN PLATELET VOLUME 10.6 fl (9.6-12.3); MONO # 0.4 10*3/uL (0.1-1.0); MONO % 5.5 % (3.0-9.0); NEUT # 4.6 10*3/uL (2.3-7.9); NEUT % 73.4 % (47.0-73.0); PLATELET COUNT AUTOMATED 150 10*3/uL (130-400); RED BLOOD COUNT 4.03 10*6/uL (4.50-5.90); RED CELL DISTRI WIDTH 13.2 % (0-14.5); WHITE BLOOD COUNT 6.3 10*3/uL (4.8-10.8)
[2020-08-24 07:07] LABS: BUN 11 mg/dl (7-24); CHLORIDE 113 mmol/L (98-107); CREATININE 0.68 mg/dL (0.70-1.30); POTASSIUM 4.1 mmol/L (3.5-5.1); SGOT/AST 16 IU/L (3-35); SGPT/ALT 20 U/L (12-78); SODIUM 144 mmol/L (136-145)
[2020-08-24 07:08] LABS: ALKALINE PHOSPHATASE 80 U/L (45-117); TOTAL PROTEIN 5.9 gm/dL (6.4-8.2)
[2020-08-24 08:00] VITALS: BP 148/53
[2020-08-24 08:35] VITALS: BP 110/58
--- NOTE | 2020-08-24 09:30 | NUR ---
[employer] Dr[employer] Supervisor in to talk to patient in his room 526-1 Patient states that he Lives at Home with his and will return home There are [facility] in the home. Physician: MAYANK Power and Dr. Peters Pharmacy: [place] Home health services: NONE AT TIME OF ASSESSMENT Patient's level of ADLs: INDEPENDENT Patient has working utilities: YES DME: [facility] [employer] Follow-up physician's appointment after d/c: PT. MAKES HIS APPOINTMENTS Does patient want to access PORTAL?: DECLINES discharge plan is for Pt. to Return home with his . Pt. to continue in Home Services with [facility] 3 days per Week. 2 hours on those days. Declines need for Home Health. [facility] LPN
--- NOTE | 2020-08-24 09:56 | NUR ---
PATIENT TO CARDIAC REHAB BY CART FOR STRESS TEST AT THIS TIME.
--- NOTE | 2020-08-24 11:39 | NUR ---
Call Placed to [facility] and Left Message for Pt. helmet binder Dell.
--- NOTE | 2020-08-24 11:44 | NUR ---
Spoke with Dell at [facility]. Advised that Dr. Farrell was possibly going to order Eliquis at Discharge for this Pt. and Dell Confirmed that Eliquis is on Formulary for Possibly $8.00.
--- NOTE | 2020-08-24 12:02 | NUR ---
INFORMED CONSENT SIGNED FOR LEXISCAN STRESS TEST WITH DR. VELEZ. RESTING EKG SINUS BRADYCARDIA WITH PAC'S, HR 54, BP 140/66. PULSE OX 100%. BREATH SOUNDS DIMINISHED BILATERALLY. COMPLETED ONE MINUTE OF LEXISCAN PROTOCOL RECEIVING LEXISCAN 0.4MG OVER 10 SECONDS. PAC'S NOTED WITH NO ST CHANGES. PT HAD NO C/O. LAST RECOVERY HR 81, BP 132/68. WAITING NUCLEAR SCANNING IN STABLE CONDITION.
--- NOTE | 2020-08-24 12:02 | NUR ---
notified of Pt. in network for Eliis for [facility].
--- NOTE | 2020-08-24 13:57 | NUR ---
RELEASE OF MEDICAL RECORDS SIGNED BY PATIENT THIS MORNING AND FAXED TO [facility] IN ORDER TO OBTAIN CURRENT MEDICATIONS LIST. NO LIST FAXED BACK OF YET.
[2020-08-24 16:00] VITALS: BP 125/71
[2020-08-24] MEDS ORDERED: CIPRO250 MG PO (16:31)
[2020-08-24] MEDS ORDERED: METOPROLOL SUCC25 M2 PO (16:31)
[2020-08-24] MEDS ORDERED: ELIQUIS5 M1 PO (16:31)
--- NOTE | 2020-08-24 16:35 | NUR ---
PREPARING PATIENT FOR DISCHARGE AFTER ADMINISTRATION OF ROCEPHIN 1 GM ORDERED.
--- NOTE | 2020-08-24 17:46 | NUR ---
PATIENT STATES FEELING WEAK AND NOT SURE ABOUT GOING HOME TONIGHT. DISCHARGE ORDER WAS ENTERED BY THE ATTENDING PHYSICIAN. PHONED DR. BARRON WITH THIS INFORMATION. OK TO PROCEED WITH THE DISCHARGE TOMORROW INSTEAD PER DR. MUNSON.
--- NOTE | 2020-08-24 19:14 | NUR ---
DISCHARGE WOUND PHOTOS OBTAINED; PATIENT TO BE DISCHARGED TOMORROW.
[2020-08-24 20:00] VITALS: BP 127/66
--- NOTE | 2020-08-24 20:00 | NUR ---
PATIENT RESTING IN BED WITH NO S/S OF DISTRESS. DENIES NEEDS. BED IN LOWEST POSITION, CALL LIGHT IN REACH
[2020-08-25] VITALS: BP 117/65
--- NOTE | 2020-08-25 | NUR ---
PATIENT RESTING IN BED WITH NO S/S OF DISTRESS. BED IN LOWEST POSITION, CALL LIGHT IN REACH
--- NOTE | 2020-08-25 06:00 | NUR ---
PATIENT RESTED WELL THROUGHOUT THE NIGHT WITH NO DISTRESS. BED IN LOWEST POSITION, CALL LIGHT IN REACH
[2020-08-25 08:00] VITALS: BP 130/66
--- NOTE | 2020-08-25 10:39 | NUR ---
Discharge instructions reviewed with patient. Patient receptive and verbalizes understanding. Follow-up care arranged. Written instructions given to patient. PREPARING FOR DISCHARGE HOME. PATIENT CALLING FOR A RIDE. GISEL MILLER
--- NOTE | 2020-08-25 11:56 | NUR ---
PATIENT DISCHARGED TO FRONT LOBBY BY WHEELCHAIR, ACCOMPANIED BY [facility], FOR TRANSPORT HOME BY PRIVATE VEHICLE WITH FAMILY.
--- NOTE | 2020-08-25 14:43 | NUR ---
Discharge medication list and Paperwork Faxed to [facility].Attn: Dell BELLA .
== END 2020-08-25 14:05 | disposition home or self-care (01) ==
LOC: ED 21:07 → EDHOLD 08-23 00:22 → 5E 08-23 07:25
PROVIDERS: Emergency Medicine; Internal Medicine; ADMIT Family Medicine; ATTEND Family Medicine
DX: I48.91 Unspecified atrial fibrillation (principal); I95.9 Hypotension, unspecified; I47.1 Supraventricular tachycardia; R00.1 Bradycardia, unspecified; D53.9 Nutritional anemia, unspecified; R73.9 Hyperglycemia, unspecified; E78.5 Hyperlipidemia, unspecified; E87.2 Acidosis; E83.41 Hypermagnesemia; I21.4 Non-ST elevation (NSTEMI) myocardial infarction; I50.32 Chronic diastolic (congestive) heart failure; Z78.9 Other specified health status; Z20.828 Contact with and (suspected) exposure to other viral communicable diseases

== ENCOUNTER 2022-01-14 08:02 | Emergency (ER) | payer MEDICARE, OTHER ==
[~2022-01-14] VITALS: Ht 167.6 cm; Wt 72.6 kg
[~2022-01-14 08:02] MED LIST changes: +CAPECITABINE150 MG PO; +CIPRO250 MG PO; +ELIQUIS5 M1 PO; +FUROSEMIDE20 M1 PO; +LASIX40 MG PO; +METOPROLOL SUCC25 M2 PO; +POTASSIUM CHLO10 ME5 PO; +TRIAD TP; +XELODA500 MG PO
[2022-01-14 08:34] LABS: HEMATOCRIT 35.5 % (42.0-52.0); MEAN CELL VOLUME 109.9 fl (80.0-94.0); MEAN CORPUSCULAR HGB 36.5 pg (27.0-31.0); MEAN CORPUSCULAR HGB CONC 33.2 g/dl (33.0-37.0); MEAN PLATELET VOLUME 9.2 fl (9.6-12.3); PLATELET COUNT AUTOMATED 129 10*3/uL (130-400); RED BLOOD COUNT 3.23 10*6/uL (4.50-5.90); RED CELL DISTRI WIDTH 16.8 % (0-14.5); WHITE BLOOD COUNT 5.7 10*3/uL (4.8-10.8)
[2022-01-14 08:35] LABS: MANUAL DIFF REFLEX YES
[2022-01-14 08:58] LABS: BASOPHILS 1 % (0-1); TOTAL CELLS COUNTED 100 #CELLS
[2022-01-14 08:59] LABS: PLATELET SUFFICIENCY LOW (NORMAL)
== END 2022-01-14 10:18 | disposition home or self-care (01) ==
LOC: ED 08:02
PROVIDERS: Family Medicine
DX: L76.22 Postprocedural hemorrhage of skin and subcutaneous tissue following other procedure (principal); Z79.899 Other long term (current) drug therapy; Z79.82 Long term (current) use of aspirin

== ENCOUNTER 2022-06-06 09:50 | Emergency (ER) | payer MEDICARE, OTHER ==
[~2022-06-06] VITALS: Wt 76.4 kg
[2022-06-06 11:06] LABS: BASO % 0.4 % (0.0-1.0); EOS # 0.1 10*3/uL (0.0-0.4); EOS % 2.4 % (1.0-4.0); HEMATOCRIT 39.1 % (42.0-52.0); LYMPH # 0.8 10*3/uL (1.3-4.4); LYMPH % 15.8 % (27.0-41.0); MEAN CELL VOLUME 100.3 fl (80.0-94.0); MEAN CORPUSCULAR HGB 32.6 pg (27.0-31.0); MEAN CORPUSCULAR HGB CONC 32.5 g/dl (33.0-37.0); MEAN PLATELET VOLUME 9.8 fl (9.6-12.3); MONO # 0.3 10*3/uL (0.1-1.0); MONO % 5.2 % (3.0-9.0); NEUT # 3.8 10*3/uL (2.3-7.9); PLATELET COUNT AUTOMATED 140 10*3/uL (130-400); RED CELL DISTRI WIDTH 13.2 % (0-14.5)
[2022-06-06 11:27] LABS: ALKALINE PHOSPHATASE 91 U/L (45-117); BUN 18 mg/dl (7-24); CHLORIDE 108 mmol/L (98-107); CREATININE 0.82 mg/dL (0.70-1.30); POTASSIUM 3.9 mmol/L (3.5-5.1); SGOT/AST 11 IU/L (3-35); SGPT/ALT 18 U/L (12-78); SODIUM 144 mmol/L (136-145); TOTAL PROTEIN 6.4 gm/dL (6.4-8.2)
[2022-06-06 12:11] LABS: BILIRUBIN Negative (Negative); BLOOD Negative (Negative); CLARITY Clear (Clear); COLOR Yellow (Yellow); GLUCOSE Negative (Negative); KETONE Negative (Negative); LEUKO ESTERASE Negative (Negative); NITRITE Positive (Negative); PH 7.5 (4.5-8.0)
[2022-06-06 12:22] LABS: BACTERIA 4+; EPITHELIAL CELLS 0-2; WBC 0-2 wbc/hpf (0-5)
== END 2022-06-06 12:50 | disposition home or self-care (01) ==
LOC: ED 09:50
PROVIDERS: Emergency Medicine
DX: M79.671 Pain in right foot (principal); M79.672 Pain in left foot; R00.1 Bradycardia, unspecified; E78.5 Hyperlipidemia, unspecified; Z79.899 Other long term (current) drug therapy; Z79.82 Long term (current) use of aspirin; Z98.890 Other specified postprocedural states

== ENCOUNTER 2022-12-26 13:42 | Emergency (ER) | payer MEDICARE, OTHER ==
[~2022-12-26] VITALS: Ht 160 cm; Wt 74.8 kg
[2022-12-26 14:12] LABS: BASO % 0.3 % (0.0-1.0); EOS # 0.1 10*3/uL (0.0-0.4); EOS % 0.7 % (1.0-4.0); HEMATOCRIT 40.4 % (42.0-52.0); LYMPH # 0.9 10*3/uL (1.3-4.4); LYMPH % 12.3 % (27.0-41.0); MEAN CELL VOLUME 97.8 fl (80.0-94.0); MEAN CORPUSCULAR HGB 32.4 pg (27.0-31.0); MEAN CORPUSCULAR HGB CONC 33.2 g/dl (33.0-37.0); MEAN PLATELET VOLUME 9.8 fl (9.6-12.3); MONO # 0.5 10*3/uL (0.1-1.0); MONO % 6.4 % (3.0-9.0); NEUT # 5.7 10*3/uL (2.3-7.9); PLATELET COUNT AUTOMATED 147 10*3/uL (130-400); RED BLOOD COUNT 4.13 10*6/uL (4.50-5.90); RED CELL DISTRI WIDTH 13.7 % (0-14.5); WHITE BLOOD COUNT 7.1 10*3/uL (4.8-10.8)
[2022-12-26 14:27] LABS: ALKALINE PHOSPHATASE 83 U/L (46-116); BUN 16 mg/dl (9-23); CHLORIDE 109 mmol/L (98-107); POTASSIUM 3.9 mmol/L (3.4-5.1); SGPT/ALT 31 U/L (10-49); TOTAL PROTEIN 6.2 gm/dL (6.0-8.0)
== END 2022-12-26 17:53 | disposition home or self-care (01) ==
LOC: ED 13:42
PROVIDERS: Family Medicine
DX: I47.1 Supraventricular tachycardia (principal); Z79.899 Other long term (current) drug therapy; Z79.82 Long term (current) use of aspirin

== ENCOUNTER 2023-06-26 01:36 | Emergency (ER) | payer MEDICARE, OTHER ==
[~2023-06-26] VITALS: Ht 167.6 cm; Wt 80.7 kg
[2023-06-26 02:04] LABS: BASO % 0.5 % (0.0-1.0); EOS # 0.2 10*3/uL (0.0-0.4); EOS % 2.2 % (1.0-4.0); HEMATOCRIT 37.5 % (42.0-52.0); LYMPH # 0.8 10*3/uL (1.3-4.4); MEAN CELL VOLUME 97.7 fl (80.0-94.0); MEAN CORPUSCULAR HGB 33.1 pg (27.0-31.0); MEAN CORPUSCULAR HGB CONC 33.9 g/dl (33.0-37.0); MEAN PLATELET VOLUME 10.1 fl (9.6-12.3); MONO # 0.4 10*3/uL (0.1-1.0); MONO % 5.1 % (3.0-9.0); NEUT % 80.9 % (47.0-73.0); PLATELET COUNT AUTOMATED 142 10*3/uL (130-400); RED BLOOD COUNT 3.84 10*6/uL (4.50-5.90); RED CELL DISTRI WIDTH 13.4 % (0-14.5); WHITE BLOOD COUNT 7.4 10*3/uL (4.8-10.8)
[2023-06-26 02:19] LABS: ACT PARTIAL THROMBO TIME 29.6 SECONDS (20.0-32.1); INTERNATIONAL NORM RATIO 1.2 (2.0-3.5)
[2023-06-26 02:25] LABS: ALKALINE PHOSPHATASE 89 U/L (46-116); BUN 17 mg/dl (9-23); CHLORIDE 109 mmol/L (98-107); LIPASE 40 U/L (12-53); POTASSIUM 3.8 mmol/L (3.4-5.1); SGPT/ALT 11 U/L (10-49); TOTAL PROTEIN 6.3 gm/dL (6.0-8.0)
== END 2023-06-26 04:28 | disposition home or self-care (01) ==
LOC: ED 01:36
PROVIDERS: Internal Medicine
DX: M79.671 Pain in right foot (principal); I25.2 Old myocardial infarction; E78.00 Pure hypercholesterolemia, unspecified; I11.0 Hypertensive heart disease with heart failure; I50.9 Heart failure, unspecified; Z98.890 Other specified postprocedural states

== ENCOUNTER → 2024-03-20 | Outpatient (CLI) | payer MEDICARE, OTHER ==
[~2024-03-20] MED LIST changes: +ARTHRITIS PAIN50 GM T; +BIOFREEZE85 GM T; +DOXYCYCLINE MO100 MG PO; +HYDROCODONE-AC1 EAC1 PO; -LIDOCAINE PAIN1 EACH T; +MIRALAX119 GM PO; +MUCUS RELIEF600 MG PO; +[UNRECOGNIZED DRUG - OTHER] T
== END | disposition home or self-care (01) ==
LOC: ORTHO 02:14
PROVIDERS: ATTEND Orthopaedic Surgery
DX: S72.21XD Displaced subtrochanteric fracture of right femur, subsequent encounter for closed fracture with routine healing (principal); Z96.698 Presence of other orthopedic joint implants; X58.XXXD Exposure to other specified factors, subsequent encounter

== ENCOUNTER → 2024-05-01 | Outpatient (CLI) | payer MEDICARE, OTHER ==
[~2024-05-01] MED LIST changes: +GUAIFENESI100 MG/56 PO; +K-TAB20 MEQ PO; +LASIX20 MG PO; +OMNICEF300 MG PO
== END | disposition home or self-care (01) ==
LOC: ORTHO 00:50
PROVIDERS: ATTEND Orthopaedic Surgery
DX: Z47.1 Aftercare following joint replacement surgery (principal); Z96.641 Presence of right artificial hip joint

== ENCOUNTER → 2024-10-04 | Outpatient (CLI) | payer MEDICARE, OTHER | END | disposition home or self-care (01) | LOC: ORTHO 02:02 | PROVIDERS: ATTEND Orthopaedic Surgery | DX: S72.21XD Displaced subtrochanteric fracture of right femur, subsequent encounter for closed fracture with routine healing (principal); X58.XXXD Exposure to other specified factors, subsequent encounter ==

== ENCOUNTER → 2025-03-05 | Outpatient (CLI) | payer MEDICARE, OTHER | END | disposition home or self-care (01) | LOC: ORTHO 01:16 | PROVIDERS: ATTEND Orthopaedic Surgery | DX: S72.21XD Displaced subtrochanteric fracture of right femur, subsequent encounter for closed fracture with routine healing (principal); I25.84 Coronary atherosclerosis due to calcified coronary lesion; X58.XXXD Exposure to other specified factors, subsequent encounter ==